=== PATIENT | female | born 1965 | race Caucasian/White ===

== ENCOUNTER → 2016-11-22 | Outpatient (CLI) | payer OTHER ==
[~2016-11-22] MED LIST: MISCCAP80 PO; MULT-190 PO; MULT-506 PO; VENL75CA73 PO
== END | disposition home or self-care (01) ==
LOC: C.PAPS 14:35
PROVIDERS: ATTEND Obstetrics & Gynecology
DX: Z12.4 Encounter for screening for malignant neoplasm of cervix (principal)

== ENCOUNTER → 2016-12-05 | Outpatient (CLI) | payer OTHER ==
[2016-12-05 14:40] LABS: HEMATOCRIT 36.8 % (37-47); MEAN CELL VOLUME 95.6 fL (80-100); MEAN CORPUSCULAR HEMOGLOBIN 32.2 pg (25-34); MEAN CORPUSCULAR HGB CONC 33.7 g/dl (32-36); MEAN PLATELET VOLUME 10.3 fL (7.4-10.4); PLATELET COUNT 282 K/uL (130-400); RED BLOOD COUNT 3.85 M/uL (4.2-5.4); WHITE BLOOD COUNT 8.16 K/uL (4.8-10.8)
== END | disposition home or self-care (01) ==
LOC: C.LAB1850 13:55
PROVIDERS: ATTEND Obstetrics & Gynecology
DX: N93.9 Abnormal uterine and vaginal bleeding, unspecified (principal)

== ENCOUNTER → 2016-12-25 | Outpatient (CLI) | payer OTHER | END | disposition home or self-care (01) | LOC: C.PATHSPEC 17:35 | PROVIDERS: ATTEND Obstetrics & Gynecology | DX: N93.9 Abnormal uterine and vaginal bleeding, unspecified (principal); N85.00 Endometrial hyperplasia, unspecified ==

== ENCOUNTER → 2017-02-20 | Day surgery (SDC) | payer OTHER ==
[2017-01-15 08:10] VITALS: Ht 167.6 cm; Wt 59.1 kg
[~2017-02-20] VITALS: Ht 167.6 cm; Wt 59.1 kg
[~2017-02-20] MED LIST changes: +DEXAMETHASONE SOD INJ 4 MG/ML VIAL ONE; +FENTANYL CITRATE INJ 50 MCG/1 ML 2 ML VIAL IV PRN; +FENTANYL CITRATE INJ 50 MCG/1 ML 2 ML VIAL ONE; +IBUPROFEN 600 MG TAB PO PRN; +KETOROLAC TROMETHAMINE 30 MG/ML VIAL IV. PRN; +LACTATED RINGER'S 1000ML 1,000 ML IV PRN; +LACTATED RINGER'S 1000ML 1,000 ML IV SCH; +LIDOCAINE HCL 2% 2 ML VIAL (20MG/ML) ONE; +MIDAZOLAM HCL 1 MG/ML 2ML VIAL ONE; +ONDANSETRON INJ 2 MG/ML 2 ML VIAL IV PRN; +ONDANSETRON INJ 2 MG/ML 2 ML VIAL ONE; +PROPOFOL IV EMULSION 10 MG/ML 20 ML VIAL IV ONE; +SODIUM CHLORIDE 0.9% 1000ML 1,000 ML IV SCH
--- NOTE | 2017-02-20 13:00 | History & Physical Bridge - [place] ---
H&P Re-Evaluation Bridge Note: I have examined the patient, reviewed the History & Physical and in the interval since the performance of the History & Physical I have noted the following changes of clinical significance: No changes noted
--- NOTE | 2017-02-20 13:35 | Discharge Instructions ---
Discharge Instructions Date of Service Feb 20, 2017. Admission Reason for Admission: Abnormal Uterine Bleeding, Endometrial Polyp Discharge Discharge Diagnosis / Problem: after surgery Discharge Goals Goal(s): Routine recovery after surgery Activity Recommendations Activity Limitations: as noted below . Instructions / Follow-Up Instructions / Follow-Up ACTIVITY RECOMMENDATIONS: * Avoid tampons, douching, hot tubs, pools, and intercourse until bleeding has stopped. * May shower as usual. * No strenuous activity for 24-48 hours. After 24-48 hours, you may do anything you feel like doing (driving and sports are okay). SPECIAL CARE INSTRUCTIONS: Special Diet: * Mild nausea may occur in the immediate post-operative period. * Take clear liquids such as tea, cola or bouillon until all nausea has subsided; you may then resume your normal diet. Special Care: * Light bleeding and vaginal spotting can last from a few days to 3-4 weeks. Call your doctor if bleeding becomes heavier than the heaviest part of your period. * Check your temperature twice a day for one week. If it goes above 100.4 degrees Fahrenheit (38.0 Celsius), notify your doctor. * Call your doctor's office for an appointment for 2-4 weeks after your surgery. FOLLOW-UP VISIT: Call your doctor's office for an appointment for 2-4 weeks after your surgery. Current Hospital Diet Patient's current hospital diet: Discharge Diet Recommended Diet: Regular Diet Procedures Procedures Performed: Dilatation And Curettage, Hysteroscopy, Polypectomy Pending Studies Studies pending at discharge: yes List of pending studies: pathology report Medical Emergencies . Who to Call and When: Medical Emergencies: If at any time you feel your situation is an emergency, please call 911 immediately. . Non-Emergent Contact Non-Emergency issues call your: [employer] . . "Provider Documentation" section prepared by Vita Barr. . VTE Core Measure Inpt VTE Proph given/why not?: Treatment not indicated
--- NOTE | 2017-02-20 13:37 | [facility] Post Operative Brief Note ---
Immediate Operative Summary Operative Date Feb 20, 2017. Pre-Operative Diagnosis Abnormal uterine bleeding, endometrial polyp Post-Operative Diagnosis Same as preop Procedure(s) Performed Dilatation And Curettage, Hysteroscopy, Polypectomy Surgeon Dr. Vita Barr Assistant Scientist Surgeon(s) None Estimated Blood Loss 0 mL Findings uterus sounds to 7cm. polyp emanating from right cornual area. large curettings. saline deficit <100cc. Fluids (cc crystalloids) 500 Specimens A: Endometrial curettings and polyp Drains none Anesthesia general Complication(s) None Disposition Recovery Room / PACU
--- NOTE | 2017-02-20 13:56 | OPERATIVE REPORT ---
DATE OF OPERATION: 02/20/2017 PREOPERATIVE DIAGNOSES: 1. Abnormal uterine bleeding. 2. Suspicion for endometrial polyp. POSTOPERATIVE DIAGNOSES: 1. Abnormal uterine bleeding. 2. Endometrial polyp PROCEDURE: 1. Dilatation and curettage. 2. Hysteroscopy with endometrial polypectomy. SURGEON: Dr. Vita Barr. RENDERING EQUIPMENT TENDER: None. ANESTHESIA: General. IV FLUIDS: 500 mL. ESTIMATED BLOOD LOSS: 0 mL. INDICATIONS: A 51-year-old with continued abnormal uterine bleeding with suspicion for endometrial polyp on ultrasound last year and again this year. At this point, she desires surgical evaluation and management. FINDINGS: Normal uterus, cavity of the uterus sounded to 7 cm. Saline hysteroscopic fluid deficit less than 100 mL. Cavity normal appearing with normal left tubal ostia well seen, right tubal ostia obscured by presence of the polyp. At the end of the procedure hysteroscopic findings included no remaining polyps. OPERATION AND FINDINGS: PROCEDURE: The patient was taken to the operating room and identified. After adequate general anesthesia was obtained, she was placed in dorsal lithotomy position and prepped and draped in the usual sterile fashion. The bladder was drained for clear yellow urine. A weighted speculum and anterior retractor were used to visualize the cervix which was grasped its anterior lip with an Allis clamp. The cervix was sequentially dilated using Hegar dilators to 27. The diagnostic hysteroscope primed with saline medium was gently placed through the cervical os into the uterine cavity with the findings as noted above. The polyp forceps as well as the serrate curette were used to clear the uterus of its contents and the uterus was curettaged to a gritty consistency. All specimens were sent. The camera was used to confirm removal of the visualized polyp. At this point the procedure was terminated. The instruments were removed from the vagina. The patient was returned to supine position. She was awoken from anesthesia and transferred to the recovery room in stable condition. All sponge, lap and needle counts were correct x2. I attest to the content of the Intraoperative Record and any orders documented therein. Any exceptions are noted below. MTDD
--- NOTE | 2017-02-20 14:02 | Anesthesia Progress Nt - [facility] ---
Anesthesia Post Op Note Date & Time Feb 20, 2017 at 14:01 Vital Signs Pain Intensity: 0 Vital Signs Past 12 Hours Date Time Temp Pulse Resp B/P Pulse Ox O2 Delivery O2 Flow Rate FiO2 02/20/17 13:32 36.2 55 16 136/75 100 Diffusion Mask 6 02/20/17 12:33 36.4 58 16 133/84 100 Room Air Notes Mental Status: alert / awake / arousable, participated in evaluation Pt Amnestic to Procedure: Yes Nausea / Vomiting: adequately controlled Pain: adequately controlled Airway Patency, RR, SpO2: stable & adequate BP & HR: stable & adequate Hydration State: stable & adequate Anesthetic Complications: no major complications apparent Pt doing well.
[2017-02-20 14:55] VITALS: BP 147/87; PULSE 64; O2SAT 99
== END | disposition home or self-care (01) ==
LOC: X.SURG 12:19
PROVIDERS: ATTEND Obstetrics & Gynecology
DX: N93.9 Abnormal uterine and vaginal bleeding, unspecified (principal); N84.0 Polyp of corpus uteri; F32.9 Major depressive disorder, single episode, unspecified; Z88.1 Allergy status to other antibiotic agents; Z98.890 Other specified postprocedural states; Z68.21 Body mass index [BMI] 21.0-21.9, adult; F17.200 Nicotine dependence, unspecified, uncomplicated; Z81.8 Family history of other mental and behavioral disorders; Z82.49 Family history of ischemic heart disease and other diseases of the circulatory system; Z80.3 Family history of malignant neoplasm of breast

== ENCOUNTER 2017-04-26 01:51 | Inpatient (IN) | payer OTHER ==
[~2017-04-26] VITALS: Ht 167.6 cm; Wt 59.0 kg
[2017-04-26] VITALS (8 sets, daily range): BP systolic 122–156; BP diastolic 74–89; PULSE 70–85; TEMP 36.5–37; O2SAT 93–97; Ht 167.6 cm; Wt 59.0 kg
[~2017-04-26 01:51] MED LIST changes: -DEXAMETHASONE SOD INJ 4 MG/ML VIAL ONE; -FENTANYL CITRATE INJ 50 MCG/1 ML 2 ML VIAL IV PRN; -FENTANYL CITRATE INJ 50 MCG/1 ML 2 ML VIAL ONE; -IBUPROFEN 600 MG TAB PO PRN; -KETOROLAC TROMETHAMINE 30 MG/ML VIAL IV. PRN; -LACTATED RINGER'S 1000ML 1,000 ML IV PRN; -LACTATED RINGER'S 1000ML 1,000 ML IV SCH; -LIDOCAINE HCL 2% 2 ML VIAL (20MG/ML) ONE; -MIDAZOLAM HCL 1 MG/ML 2ML VIAL ONE; -MULT-506 PO; -ONDANSETRON INJ 2 MG/ML 2 ML VIAL IV PRN; -ONDANSETRON INJ 2 MG/ML 2 ML VIAL ONE; -PROPOFOL IV EMULSION 10 MG/ML 20 ML VIAL IV ONE; -SODIUM CHLORIDE 0.9% 1000ML 1,000 ML IV SCH
[2017-04-26] MEDS ORDERED: ONDANSETRON INJ 2 MG/ML 2 ML VIAL IV STA (02:14)
[2017-04-26] MEDS ORDERED: SODIUM CHLORIDE 0.9% 1000ML 1,000 ML IV STA (02:14)
[2017-04-26] MEDS ORDERED: FENTANYL CITRATE INJ 50 MCG/1 ML 2 ML VIAL IV STA (02:14)
[2017-04-26] MEDS ORDERED: MULT-506 PO (02:17)
--- NOTE | 2017-04-26 02:21 | EMERGENCY ROOM VISIT NOTE ---
History Report prepared by Jil: Gloria Gibson Under the Supervision of: Dr. Steph Avalos D.O. First contact with patient: 01:57 Chief Complaint: ABDOMINAL PAIN Stated Complaint: ABDOMINAL PAIN,VOMITING History of Present Illness The patient is a 51 year old female who presents to the Emergency Room with complaints of sudden, persistent abdominal pain that began one hour prior to arrival. She currently rates her discomfort as an 8/10 in severity. The patient states that she was out this evening at a bar and had two beers. She additionally notes that she had two glasses of wine around 2300. The patient states that at 0100 she was woken with severe abdominal pain and vomiting. She additionally associates diaphoresis with her symptoms. The patient reports a history of palpitations and chronic constipation. She states that two weeks ago she had surgery for a uterine fibroid and uterine polyp. The patient denies any history of hypertension. She denies any chest pain today. The patient reports that her mother had a history of an aortic aneurysm. Source of History: patient Onset: one hour prior to arrival Position: abdomen Symptom Intensity: 8/10 Timing: other (sudden, persistent) Associated Symptoms: + vomiting, No chest pain Review of Systems See HPI for pertinent positives & negatives. A total of 10 systems reviewed and were otherwise negative. Past Medical & Surgical Medical Problems: (1) Chronic constipation (2) Palpitations (3) Uterine fibroid (4) Uterine polyp Family History Aortic aneurysm MOTHER No pertinent family history stated. Social History Smoking Status: Current Every Day Smoker Marital Status: Housing Status: lives with significant other Occupation Status: unemployed Current/Historical Medications Scheduled Multivitamin (Multivitamin), 1 TAB PO DAILY Ocuvite Preservision (Ocuvite Preservision), 1 TAB PO QAM Probiotic Product (Probiotic), 1 TAB PO QAM Venlafaxine Hcl (Venlafaxine Extended Rel), 75 MG PO QAM Allergies Coded Allergies: Diphenhydramine (Verified Allergy, Unknown, "skin crawling", 02/20/17) Hydromorphone (Verified Allergy, Unknown, nausea/vomiting, 02/20/17) Physical Exam Vital Signs Date Time Temp Pulse Resp B/P (MAP) Pulse Ox O2 Delivery O2 Flow Rate FiO2 04/26/17 04:21 165/93 04/26/17 04:15 68 24 94 04/26/17 04:11 156/87 04/26/17 04:01 161/89 04/26/17 03:52 163/77 04/26/17 03:45 63 15 100 04/26/17 03:41 167/89 04/26/17 03:31 171/100 04/26/17 03:21 182/98 04/26/17 03:15 65 21 100 04/26/17 03:11 183/90 04/26/17 03:01 196/100 04/26/17 02:51 166/100 04/26/17 02:45 76 20 100 04/26/17 02:41 80 16 154/101 100 Room Air 04/26/17 02:28 77 04/26/17 01:53 76 24 105/66 99 Room Air Physical Exam HEENT: Head - normocephalic and atraumatic Pupils are equal, round, and reactive to light. Extraocular eye muscles are intact, and sclera are anicteric. Nose - moist nasal mucosa without discharge. Mouth - moist buccal mucosa. Oropharynx is nonerythematous and there is no tonsillar exudate or edema noted. Neck: Supple; no JVD, nuchal rigidity, cervical lymphadenopathy. Heart: Tachycardic rate and regular rhythm. There is a normal S1 and S2 with no murmurs, clicks, or gallops appreciated. Lungs: Clear to auscultation bilaterally with no wheezes, rales, or rhonchi. Abdomen: Diffusely tender. Soft, nondistended, with hyperactive bowel sounds. There are no palpable pulsatile masses or hepatosplenomegaly. There is no guarding, rigidity, or rebound noted. Extremities: No evidence of cyanosis, clubbing, or edema. There are easily palpable peripheral pulses. Skin: Diaphoretic. warm with good turgor and no rashes. Medical Decision & Procedures ER Provider Diagnostic Interpretation: CT results as stated below per my review and radiologist interpretation: CT CHEST: No evidence of thoracic aortic aneurysm or dissection. The lungs are clear. No pleural effusion or pneumothorax. The heart and pericardium unremarkable. Bilateral breast augmentation. No acute osseous abnormality. CTA ABDOMEN AND PELVIS: Impression: Cecum is in abnormally positioned within the left upper quadrant with marked gaseous distension and twisting of its anterior and prximal portion suggesting cecal volvulus. There is mild edema noted within the mesentery. No pneumatosis or free air. Additional findings: The liver, gallbladder, spleen, pancreas, and adrenal glands are unremarkable. The kidneys, ureters and urinary bladder are unremarkable. The uterus is unremarkable. Several cysts with left ovary. The appendix is not competently visualized. No acute osseous abnormality. Radiologist: Andrzej Bhakta MD Laboratory Results 04/26/17 02:00 Red Blood Count 4.17, Mean Corpuscular Volume 92.8, Mean Corpuscular Hemoglobin 31.7, Mean Corpuscular Hemoglobin Concent 34.1, Mean Platelet Volume 9.5, Neutrophils (%) (Auto) 33.6, Lymphocytes (%) (Auto) 54.8, Monocytes (%) (Auto) 7.1, Eosinophils (%) (Auto) 3.9, Basophils (%) (Auto) 0.3, Neutrophils # (Auto) 3.12, Lymphocytes # (Auto) 5.09, Monocytes # (Auto) 0.66, Eosinophils # (Auto) 0.36, Basophils # (Auto) 0.03 04/26/17 02:00 Test 04/26/17 02:00 04/26/17 02:24 04/26/17 03:05 White Blood Count 9.29 K/uL (4.8-10.8) Red Blood Count 4.17 M/uL (4.2-5.4) Hemoglobin 13.2 g/dL (12.0-16.0) Hematocrit 38.7 % (37-47) Mean Corpuscular Volume 92.8 fL (80-100) Mean Corpuscular Hemoglobin 31.7 pg (25-34) Mean Corpuscular Hemoglobin Concent 34.1 g/dl (32-36) Platelet Count 350 K/uL (130-400) Mean Platelet Volume 9.5 fL (7.4-10.4) Neutrophils (%) (Auto) 33.6 % Lymphocytes (%) (Auto) 54.8 % Monocytes (%) (Auto) 7.1 % Eosinophils (%) (Auto) 3.9 % Basophils (%) (Auto) 0.3 % Neutrophils # (Auto) 3.12 K/uL (1.4-6.5) Lymphocytes # (Auto) 5.09 K/uL (1.2-3.4) Monocytes # (Auto) 0.66 K/uL (0.11-0.59) Eosinophils # (Auto) 0.36 K/uL (0-0.5) Basophils # (Auto) 0.03 K/uL (0-0.2) RDW Standard Deviation 42.4 fL (36.4-46.3) RDW Coefficient of Variation 12.4 % (11.5-14.5) Immature Granulocyte % (Auto) 0.3 % Immature Granulocyte # (Auto) 0.03 K/uL (0.00-0.02) Red Blood Cell Morphology Unremarkable Anion Gap 15.0 mmol/L (3-11) Est Creatinine Clear Calc Drug Dose 63.2 ml/min Estimated GFR () 77.8 Estimated GFR (Non- 67.2 BUN/Creatinine Ratio 16.1 (10-20) Calcium Level 10.1 mg/dl (8.5-10.1) Total Bilirubin 0.2 mg/dl (0.2-1) Direct Bilirubin < 0.1 mg/dl (0-0.2) Aspartate Amino Transf (AST/SGOT) 18 U/L (15-37) Alanine Aminotransferase (ALT/SGPT) 23 U/L (12-78) Alkaline Phosphatase 76 U/L (45-117) Total Creatine Kinase 138 U/L (26-192) Creatine Kinase MB 1.1 ng/ml (0.5-3.6) Creatine Kinase MB Ratio 0.8 (0-3.0) Troponin I < 0.015 ng/ml (0-0.045) Total Protein 7.9 gm/dl (6.4-8.2) Albumin 4.2 gm/dl (3.4-5.0) Lipase 221 U/L (73-393) Bedside Lactic Acid Venous 4.77 mmol/L (0.90-1.70) Urine Color YELLOW Urine Appearance CLOUDY (CLEAR) Urine pH 7.5 (4.5-7.5) Urine Specific [place] 1.026 (1.000-1.030) Urine Protein NEG (NEG) Urine Glucose (UA) 1+ (NEG) Urine Ketones TRACE (NEG) Urine Occult Blood NEG (NEG) Urine Nitrite NEG (NEG) Urine Bilirubin NEG (NEG) Urine Urobilinogen NEG (NEG) Urine Leukocyte Esterase SMALL (NEG) Urine WBC (Auto) 1-5 /hpf (0-5) Urine RBC (Auto) 0-4 /hpf (0-4) Urine Hyaline Casts (Auto) 1-5 /lpf (0-5) Urine Epithelial Cells (Auto) >30 /lpf (0-5) Urine Bacteria (Auto) 1+ (NEG) Urine Yeast (Auto) PRESENT (NONE PRSENT) Laboratory results per my review. Medications Administered Medications (Trade) Dose Ordered Sig/Charles Route Start Time Stop Time Status Last Admin Dose Admin Sodium Chloride 1,000 ml @ 999 mls/hr Q1H1M STAT IV 04/26/17 02:14 04/26/17 03:14 DC 04/26/17 02:21 999 MLS/HR Ondansetron HCl (Zofran Inj) 4 mg NOW STAT IV 04/26/17 02:14 04/26/17 02:17 DC 04/26/17 02:21 4 MG Fentanyl Citrate (Fentanyl Inj) 50 mcg NOW STAT IV 04/26/17 02:14 04/26/17 02:17 DC 04/26/17 02:22 50 MCG Fentanyl Citrate (Fentanyl Inj) 50 mcg NOW ONCE IV 04/26/17 03:00 04/26/17 03:01 DC 04/26/17 02:54 50 MCG Morphine Sulfate (MoRPHine SULFATE INJ) 2 mg STK-MED ONCE .ROUTE 04/26/17 03:26 04/26/17 03:27 DC 04/26/17 03:29 2 MG Lactated Ringer's 1,000 ml @ 150 mls/hr Q6H40M IV 04/26/17 04:00 05/26/17 03:59 04/26/17 04:20 150 MLS/HR Cefoxitin Sodium (Mefoxin IV) 1,000 mg STK-MED ONCE .ROUTE 04/26/17 04:29 04/26/17 04:30 DC 04/26/17 04:13 2,000 MG Morphine Sulfate (MoRPHine SULFATE INJ) 2 mg Q1HWA PRN IV 04/26/17 04:30 05/10/17 04:29 04/26/17 04:22 2 MG Procedure Medications Administered: Fentanyl Inj 50 mcg IV, Zofran Inj 4 mg IV, Sodium Chloride 1000 ml @ 999 mls/ hr IV, Fentanyl Inj 50 mcg IV, Morphine Sulfate 2 mg IV. ECG Indication: abdominal pain Rate (beats per minute): 82 Rhythm: normal sinus Findings: ST depression (inferiorly and laterally), other (significant artifact ) ED Course 0212: Past medical records reviewed. The patient was evaluated in room B10. A complete history and physical exam was performed. 2 large bore IV locks were initiated. 0214: Ordered Fentanyl Inj 50 mcg IV, Zofran Inj 4 mg IV, Sodium Chloride 1000 ml @ 999 mls/hr IV. The patient went for a stat CT scan of the chest, abdomen/ pelvis. 0300: She continued to complain of severe pain in the abdomen. She was hemodynamically stable. Ordered Fentanyl Inj 50 mcg IV. 0301: I discussed the patients case with the [facility] radiologist. He believes that the patient has cecal volvulus. He suggests that general surgery is consulted. 0308: I discussed the patients case with Dr. Neil, General Surgery. He states that he will be here to see the patient shortly. 0309: I reevaluated the patient and she is resting. I discussed the exam findings with her and I discussed the treatment plan. She verbalized complete understanding and agreement. She will be evaluated for further treatment. 0323: Ordered Morphine Sulfate 2 mg IV. 0332: I reevaluated the patient and she is feeling better after the morphine. She is hemodynamically stable. 0339: I reevaluated the patient and she is more comfortable. 0343: Dr. Neil, General Surgery arrived in the emergency department to evaluate the patient further. Medical Decision The patient is a 51 year old female who presents to the ED with abdominal pain. Differential diagnosis includes aortic dissection, AAA, pancreatitis, perforated viscus, kidney stone, small bowel obstruction, mesenteric ischemia. I attest that I have personally reviewed the patient's current medication list. Blood Pressure Screening: Patient was found to have a slightly elevated blood pressure due to circumstances. I do not believe that the patient requires hypertension monitoring. Lab interpretation: no leukocytosis, stable H&H, lactic acid 4.7, normal renal function, glucose 149, normal LFTs, negative troponin, normal lipase, urinalysis trace ketones 1+ bacteria, small leukocyte esterase. The patient presents to the emergency department with a sudden onset of severe mid abdominal pain. Vital signs are stable. CT scan revealed evidence of a cecal volvulus with mesenteric edema. The patient had a lactic acid of 4.7 which was quite concerning for ischemia. I discussed the case with general surgery and they will evaluate the patient to go to the OR. Consults Time Called: [phone] Consulting Physician: Dr. Neil, General Surgery Returned Call: 030 I discussed the patients case with Dr. Neil, General Surgery. He states that he will be here to see the patient shortly. Impression Primary Impression: Cecal volvulus Critical Care I have personally spent greater than 60 minutes of critical care time in the direct management of this patient. This includes bedside care, interpretation of diagnostic studies, and testing, discussion with consultants, patient, and family members, and other required patient management activities. This 60 minutes is in excess of all separately billable procedures. Scribe Attestation The scribe's documentation has been prepared under my direction and personally reviewed by me in its entirety. I confirm that the note above accurately reflects all work, treatment, procedures, and medical decision making performed by me. Departure Information Dispostion Being Evaluated By Surgeon Kimo Zhang M.D. (PCP)
[2017-04-26 02:23] LABS: HEMATOCRIT 38.7 % (37-47); MEAN CELL VOLUME 92.8 fL (80-100); MEAN CORPUSCULAR HEMOGLOBIN 31.7 pg (25-34); MEAN CORPUSCULAR HGB CONC 34.1 g/dl (32-36); MEAN PLATELET VOLUME 9.5 fL (7.4-10.4); PLATELET COUNT 350 K/uL (130-400); RED BLOOD COUNT 4.17 M/uL (4.2-5.4); WHITE BLOOD COUNT 9.29 K/uL (4.8-10.8)
[2017-04-26] MEDS ORDERED: OPTIRAY 320 IV PRN (02:30)
[2017-04-26 02:43] LABS: BASO % 0.3 %; BASO ABS # 0.03 K/uL (0-0.2); COMPLETE YES; EOS % 3.9 %; IG% 0.3 %; LYMPH % 54.8 %; LYMPH ABS # 5.09 K/uL (1.2-3.4); MONO % 7.1 %; NEUT % 33.6 %
[2017-04-26 02:47] LABS: ALT/SGPT 23 U/L (12-78); AST/SGOT 18 U/L (15-37); BLOOD UREA NITROGEN 16 mg/dl (7-18); BUN/CREATININE RATIO 16.1 (10-20); CARBON DIOXIDE 18 mmol/L (21-32); CHLORIDE 109 mmol/L (98-107); CREATININE 0.97 mg/dl (0.60-1.20); GLUCOSE 149 mg/dl (70-99); POTASSIUM 3.3 mmol/L (3.5-5.1); SODIUM 142 mmol/L (136-145)
[2017-04-26 02:52] LABS: ALKALINE PHOSPHATASE 76 U/L (45-117); CKMB/CK RATIO 0.8 (0-3.0)
[2017-04-26] MEDS ORDERED: FENTANYL CITRATE INJ 50 MCG/1 ML 2 ML VIAL IV ONE (03:00)
[2017-04-26 03:21] LABS: URINE APPEARANCE CLOUDY (CLEAR); URINE BILIRUBIN NEG (NEG); URINE COLOR YELLOW; URINE EPITHELIAL CELL AUTO >30 /lpf (0-5); URINE NITRITE NEG (NEG); URINE PH 7.5 (4.5-7.5); URINE SPECIFIC GRAVITY 1.026 (1.000-1.030); UROBILINOGEN NEG (NEG)
[2017-04-26 03:21] LABS: CALCIUM 10.1 mg/dl (8.5-10.1)
[2017-04-26] MEDS ORDERED: MoRPHine SULFATE 4 MG/ML 1 ML CARP\\VIAL IV STA (03:23)
[2017-04-26 03:24] LABS: MANUAL MICROSCOPIC REQUIRED? NO; REVIEW REQ? YES
[2017-04-26] MEDS ORDERED: MoRPHine SULFATE 2 MG/ML CARP ONE ×3 (03:26→05:59)
[2017-04-26] MEDS ORDERED: CEFOXITIN 2000MG/60 ML D5W IV STA (03:58)
[2017-04-26] MEDS ORDERED: LACTATED RINGER'S 1000ML 1,000 ML IV SCH (04:00)
--- NOTE | 2017-04-26 04:11 | History and Physical ---
History & Physical Date Apr 26, 2017. Chief Complaint acute onset abd pain, ct scan cecal volvulus History of Present Illness The patient is a 51 year old female with complaints of acute abd pain started at 1;00 am(had few drinks prior to that earlier) had bm on way to hospital and vomited here in ER but pain persists had colonoscopy past for constipation no family history of colonic problems previous surgery uterine polyps social drinker Past Medical/Surgical History Medical Problems: (1) Chronic constipation (2) Palpitations (3) Uterine fibroid (4) Uterine polyp Additional History Hepatic Disease: No Endocrine Disorder: No Kidney Disease: No Hypertension: No Heart Disease: Yes Bleeding Tendencies: No Infectious Diseases: No Allergies Coded Allergies: Diphenhydramine (Verified Allergy, Unknown, "skin crawling", 02/20/17) Hydromorphone (Verified Allergy, Unknown, nausea/vomiting, 02/20/17) Home Medications Scheduled Multivitamin (Multivitamin), 1 TAB PO DAILY Ocuvite Preservision (Ocuvite Preservision), 1 TAB PO QAM Probiotic Product (Probiotic), 1 TAB PO QAM Venlafaxine Hcl (Venlafaxine Extended Rel), 75 MG PO QAM Physical Examination Skin: + pertinent finding (feels cold bit clammy with occ diaphoresis) ENT: normal ENT inspection, pharynx normal Head: normocephalic, atraumatic Neck: supple, no adenopathy, trachea midline Respiratory/Chest: lungs clear, normal breath sounds, no respiratory distress Cardiovascular: regular rate, rhythm, no edema, no murmur Abdomen / GI: + pertinent finding (generalized guarding no loc tenderness) Back: normal inspection Extremities: normal inspection, normal range of motion Neurologic/Psych: oriented x 3 Addiitonal Comments: acute onset regarding timing from ETOH use a few hours Diagnosis cecal volvulus Plan of Treatment to OR for colon resection r and c explained to pt and
[2017-04-26] MEDS: MoRPHine SULFATE 2 MG/ML CARP IV PRN ×4 (04:22→21:00)
[2017-04-26] MEDS ORDERED: CEFOXITIN SOD 1 GM VIAL ONE (04:29)
[2017-04-26] MEDS ORDERED: ONDANSETRON INJ 2 MG/ML 2 ML VIAL IV PRN (04:45)
[2017-04-26] MEDS ORDERED: FENTANYL CITRATE INJ 50 MCG/1 ML 2 ML VIAL IV PRN (04:45)
[2017-04-26] MEDS ORDERED: ATROPINE SULFATE 0.1 MG/ML 5ML SYR IV PRN (04:45)
[2017-04-26] MEDS ORDERED: EpHEDrine SULFATE INJ 50 MG/ML AMP IV PRN (04:45)
[2017-04-26] MEDS ORDERED: ROCURONIUM BROMIDE 10 MG/ML 5 ML VIAL ONE (04:53)
[2017-04-26] MEDS ORDERED: ONDANSETRON INJ 2 MG/ML 2 ML VIAL ONE (04:53)
[2017-04-26] MEDS ORDERED: FENTANYL CITRATE INJ 50 MCG/1 ML 2 ML VIAL ONE (04:53)
[2017-04-26] MEDS ORDERED: PROPOFOL IV EMULSION 10 MG/ML 20 ML VIAL IV ONE (04:53)
[2017-04-26] MEDS ORDERED: LIDOCAINE HCL 2% 2 ML VIAL (20MG/ML) ONE (04:53)
[2017-04-26] MEDS ORDERED: SUCCINYLCHOLINE CHLORIDE 20 MG/ML 10 ML VIAL IV ONE (04:53)
[2017-04-26] MEDS ORDERED: EpHEDrine SULFATE 50MG/5ML SYR ONE (06:11)
[2017-04-26] MEDS ORDERED: GLYCOPYRROLATE INJ 0.2 MG/ML VIAL ONE (06:19)
[2017-04-26] MEDS ORDERED: NEOSTIGMINE METHYLSULFATE 5 MG/5 ML SYR ONE (06:19)
--- NOTE | 2017-04-26 06:39 | [facility] Operative Report ---
Operative Report Operative Date Apr 26, 2017. Pre-Operative Diagnosis cecal volvulus Post-Operative Diagnosis same Procedure(s) Performed resection right colon and hepatic flexure with primary side to side primary anastomosis(sewn) small bowel run no congenital bands Surgeon Dr. Neil Internal Communications Manager Surgeon(s) 0 Estimated Blood Loss 30cc Findings cecal volvulus edematous but viable Specimens right colon and hepatic flexureSpecimen: A. Micro: 1. urine culture Drains 1/4 inch sub surya Indications cecal volvulus Description of Procedure open right and hepatic flexure resection with side to side sewn anastomosis (2 layer chromic and silk) small bowel run no congenital bands I attest to the content of the Intraoperative Record and any orders documented therein. Any exceptions are noted below.
--- NOTE | 2017-04-26 06:47 | Anesthesiology Progress Note ---
Anesthesia Post Op Note Date & Time Apr 26, 2017 at 06:47 Vital Signs Vital Signs Past 12 Hours Date Time Temp Pulse Resp B/P (MAP) Pulse Ox O2 Delivery O2 Flow Rate FiO2 04/26/17 04:39 36.5 04/26/17 04:21 165/93 04/26/17 04:15 68 24 94 04/26/17 04:11 156/87 04/26/17 04:01 161/89 04/26/17 03:52 163/77 04/26/17 03:45 63 15 100 04/26/17 03:41 167/89 04/26/17 03:31 171/100 04/26/17 03:21 182/98 04/26/17 03:15 65 21 100 04/26/17 03:11 183/90 04/26/17 03:01 196/100 04/26/17 02:51 166/100 04/26/17 02:45 76 20 100 04/26/17 02:41 80 16 154/101 100 Room Air 04/26/17 02:28 77 04/26/17 01:53 76 24 105/66 99 Room Air Notes Mental Status: alert / awake / arousable, participated in evaluation Pt Amnestic to Procedure: Yes Nausea / Vomiting: adequately controlled Pain: adequately controlled Airway Patency, RR, SpO2: stable & adequate BP & HR: stable & adequate Hydration State: stable & adequate Anesthetic Complications: no major complications apparent
[2017-04-26] MEDS: MoRPHine SULFATE 10 MG/ML CARP/VIAL IV PRN ×4 (07:05→07:45)
--- NOTE | 2017-04-26 07:30 | DIAGNOSTIC IMAGING REPORT ---
CT angiogram chest, abdomen and pelvis ANGIO CHEST, ABD/PELVIS COMBO CLINICAL HISTORY: DISSECTION STUDY TECHNIQUE: Pre and postcontrast transaxial acquisition. Multi axial reformatted images. COMPARISON STUDY: None FINDINGS: Lungs are considered clear. There are no focal infiltrates. The thoracic aorta is normal in course and caliber. There is no evidence for aneurysm or dissection. Bilateral breast augmentation procedures have been performed. Abdominal aorta is negative for aneurysm or dissection. Iliac vasculature appears to be unremarkable. No evidence for gastric distention. Mild cecal distention at 10 cm. Sequences located in the left upper quadrant. This potentially relates to cecal volvulus versus a mobile cecum. The vascular pedicle appears to be intact. Kidneys and 8 uniformly. There is no significant abdominal or pelvic adenopathy. Appears to be bilateral ovarian cysts. An increased amount of stool content within the rectosigmoid. IMPRESSION: 1. Mildly distended cecum positioned in the left upper quadrant. 2. Diagnostic considerations include cecal volvulus versus a mobile cecum. 3. Negative study of the arterial structures of the chest abdomen and pelvis. 4. No evidence for bowel wall thickening or pneumatosis. 5. 2.5 cm left ovarian cyst. 6. Mild increase in fecal load within the rectosigmoid 7. No definite evidence for vascular compromise of the mesentery. Electronically signed by: Jamshid Lopez M.D. 04/26/2017 7:29 AM Dictated Date/Time: 04/26/2017 7:21 AM
[2017-04-26] MEDS: SODIUM CHLOR 0.45% + 20MEQ KCL 1,000 ML IV SCH ×2 (09:47→16:50)
[2017-04-26] MEDS: MoRPHine SULFATE 4 MG/ML 1 ML CARP\\VIAL IV PRN ×2 (10:42→13:34)
[2017-04-26 10:58] LABS: PARTIAL THROMBOPLASTIN RATIO 0.9; PROTHROMBIN TIME (PATIENT) 10.5 SECONDS (9.0-12.0)
[2017-04-26] MEDS: CEFOXITIN IV 2,000 MG in DEXTROSE 5% 50ML 50 ML IV SCH ×3 (11:14→23:24)
[2017-04-26] MEDS: HEPARIN SOD 5000 UNIT/0.5 ML CARP SQ SCH ×2 (14:25→23:28)
[2017-04-27] MEDS: MoRPHine SULFATE 4 MG/ML 1 ML CARP\\VIAL IV PRN ×3 (00:11→11:59)
[2017-04-27] MEDS: SODIUM CHLOR 0.45% + 20MEQ KCL 1,000 ML IV SCH ×3 (00:28→16:59)
[2017-04-27 03:29] VITALS: BP 134/76; PULSE 67; TEMP 36.7; O2SAT 95
[2017-04-27] MEDS: CEFOXITIN IV 2,000 MG in DEXTROSE 5% 50ML 50 ML IV SCH ×2 (03:41→09:30)
[2017-04-27] MEDS: HEPARIN SOD 5000 UNIT/0.5 ML CARP SQ SCH ×3 (05:55→21:38)
[2017-04-27 06:35] LABS: BASO % 0.2 %; BASO ABS # 0.02 K/uL (0-0.2); COMPLETE YES; EOS % 0.5 %; HEMATOCRIT 33.1 % (37-47); IG% 0.2 %; LYMPH % 15.7 %; LYMPH ABS # 1.48 K/uL (1.2-3.4); MEAN CELL VOLUME 96.8 fL (80-100); MEAN CORPUSCULAR HEMOGLOBIN 31.9 pg (25-34); MEAN CORPUSCULAR HGB CONC 32.9 g/dl (32-36); MEAN PLATELET VOLUME 9.5 fL (7.4-10.4); MONO % 6.8 %; NEUT % 76.6 %; PLATELET COUNT 250 K/uL (130-400); RED BLOOD COUNT 3.42 M/uL (4.2-5.4); WHITE BLOOD COUNT 9.45 K/uL (4.8-10.8)
[2017-04-27 07:10] VITALS: BP 134/81; PULSE 57; TEMP 36.9; O2SAT 98
[2017-04-27] MEDS ORDERED: NURSING VERBAL MED ORDER ONE (07:15)
[2017-04-27] MEDS: ACETAMINOPHEN IV 650 MG / 65ML IV PRN ×3 (07:25→20:37)
[2017-04-27] MEDS: VENLAFAXINE HCL XR 75 MG CAPXR PO SCH (07:28)
[2017-04-27 07:57] LABS: CALCIUM 8.5 mg/dl (8.5-10.1); CREATININE 0.95 mg/dl (0.60-1.20); POTASSIUM 4.4 mmol/L (3.5-5.1)
--- NOTE | 2017-04-27 09:27 | Surgery Progress Note ---
Surgery Progress Note Date of Service Apr 27, 2017. Subjective Post OP Day: 1 + nausea (mildearlier), No bowel movement, No flatus, No vomiting Objective Vital Signs: Date Time Temp Pulse Resp B/P (MAP) Pulse Ox O2 Delivery O2 Flow Rate FiO2 04/27/17 03:29 36.7 67 16 134/76 (95) 95 Room Air 04/27/17 00:20 Room Air 04/26/17 23:01 37.0 70 16 133/79 (97) 96 Room Air 04/26/17 19:00 36.6 70 16 126/78 (94) 97 Room Air 04/26/17 16:10 36.8 70 18 122/74 (90) 97 Room Air 04/26/17 16:10 Room Air 04/26/17 11:33 36.8 72 19 136/81 (99) 93 Room Air 04/26/17 10:30 36.5 85 16 138/85 (102) 96 Room Air 04/26/17 09:30 36.8 77 16 151/86 (107) 96 Room Air Physical Exam: ROYAL drainage, nasogastric drainage (100 cc yesterday after surgery, 70 cc last shift) Abdomen: non distended, + abnormal bowel sounds (presetn) Incision(s): clean, dry, intact Laboratory Results: Results Past 24 Hours Test 04/26/17 10:30 04/27/17 06:19 Range/Units Prothrombin Time 10.5 9.0-12.0 SECONDS Prothromb Time International Ratio 1.0 0.9-1.1 Activated Partial Thromboplast Time 23.3 21.0-31.0 SECONDS Partial Thromboplastin Ratio 0.9 White Blood Count 9.45 4.8-10.8 K/uL Red Blood Count 3.42 4.2-5.4 M/uL Hemoglobin 10.9 12.0-16.0 g/dL Hematocrit 33.1 37-47 % Mean Corpuscular Volume 96.8 80-100 fL Mean Corpuscular Hemoglobin 31.9 25-34 pg Mean Corpuscular Hemoglobin Concent 32.9 32-36 g/dl Platelet Count 250 130-400 K/uL Mean Platelet Volume 9.5 7.4-10.4 fL Neutrophils (%) (Auto) 76.6 % Lymphocytes (%) (Auto) 15.7 % Monocytes (%) (Auto) 6.8 % Eosinophils (%) (Auto) 0.5 % Basophils (%) (Auto) 0.2 % Neutrophils # (Auto) 7.24 1.4-6.5 K/uL Lymphocytes # (Auto) 1.48 1.2-3.4 K/uL Monocytes # (Auto) 0.64 0.11-0.59 K/uL Eosinophils # (Auto) 0.05 0-0.5 K/uL Basophils # (Auto) 0.02 0-0.2 K/uL RDW Standard Deviation 46.3 36.4-46.3 fL RDW Coefficient of Variation 13.0 11.5-14.5 % Immature Granulocyte % (Auto) 0.2 % Immature Granulocyte # (Auto) 0.02 0.00-0.02 K/uL Sodium Level 135 136-145 mmol/L Potassium Level 4.4 3.5-5.1 mmol/L Chloride Level 105 98-107 mmol/L Carbon Dioxide Level 22 21-32 mmol/L Anion Gap 8.0 3-11 mmol/L Blood Urea Nitrogen 6 7-18 mg/dl Creatinine 0.95 0.60-1.20 mg/dl Est Creatinine Clear Calc Drug Dose 64.5 ml/min Estimated GFR () 79.8 Estimated GFR (Non- 68.9 BUN/Creatinine Ratio 6.0 10-20 Random Glucose 101 70-99 mg/dl Lactic Acid Level 0.8 0.4-2.0 mmol/L Calcium Level 8.5 8.5-10.1 mg/dl Assessment & Plan S/P right colectomy for cecal volvulus Stable Has peristalsis D/C NT but would maintain clear liquids for now D/C Lee OOB, ambulate
[2017-04-27 11:08] VITALS: BP 139/78; PULSE 63; O2SAT 100
[2017-04-27] MEDS: ONDANSETRON INJ 2 MG/ML 2 ML VIAL IV PRN ×2 (12:06→21:39)
[2017-04-27 15:19] VITALS: BP 134/83; PULSE 62; TEMP 37; O2SAT 97
[2017-04-27] MEDS: MoRPHine SULFATE 2 MG/ML CARP IV PRN (21:39)
[2017-04-27 23:11] VITALS: BP 146/83; PULSE 76; TEMP 36.8; O2SAT 96
[2017-04-28] MEDS: SODIUM CHLOR 0.45% + 20MEQ KCL 1,000 ML IV SCH ×3 (00:18→18:47)
[2017-04-28] MEDS: MoRPHine SULFATE 2 MG/ML CARP IV PRN ×2 (03:03→21:45)
[2017-04-28] MEDS: ACETAMINOPHEN IV 650 MG / 65ML IV PRN ×2 (05:55→16:07)
[2017-04-28] MEDS: HEPARIN SOD 5000 UNIT/0.5 ML CARP SQ SCH ×3 (05:56→21:40)
[2017-04-28 07:10] VITALS: BP 134/84; PULSE 61; TEMP 36.9; O2SAT 97
[2017-04-28] MEDS: VENLAFAXINE HCL XR 75 MG CAPXR PO SCH (09:07)
--- NOTE | 2017-04-28 10:14 | Surgery Progress Note ---
Surgery Progress Note Date of Service Apr 28, 2017. Subjective Post OP Day: 1 + flatus (small amount), No nausea, No vomiting Objective Vital Signs: Date Time Temp Pulse Resp B/P (MAP) Pulse Ox O2 Delivery O2 Flow Rate FiO2 04/28/17 07:10 36.9 61 17 134/84 (101) 97 Room Air 04/28/17 00:20 Room Air 04/27/17 23:11 36.8 76 16 146/83 (104) 96 Room Air 04/27/17 15:30 Room Air 04/27/17 15:19 37.0 62 16 134/83 (100) 97 Room Air 04/27/17 11:08 63 16 139/78 (98) 100 Room Air Abdomen: non tender, non distended, + abnormal bowel sounds (diminished) Assessment & Plan S/P right colectomy for cecal volvulus Stable Has peristalsis Tolerated NGT out Begin clear liquids
[2017-04-28 15:54] VITALS: BP 134/75; PULSE 61; TEMP 36.8; O2SAT 98
[2017-04-28 16:30] VITALS: O2SAT 98
[2017-04-29] MEDS: SODIUM CHLOR 0.45% + 20MEQ KCL 1,000 ML IV SCH ×2 (01:31→10:59)
[2017-04-29 01:33] VITALS: BP 142/85; PULSE 72; TEMP 36.8; O2SAT 97
[2017-04-29] MEDS: ACETAMINOPHEN IV 650 MG / 65ML IV PRN (02:01)
[2017-04-29] MEDS: HEPARIN SOD 5000 UNIT/0.5 ML CARP SQ SCH ×3 (05:35→21:58)
[2017-04-29 05:56] LABS: MEAN CELL VOLUME 97.1 fL (80-100); MEAN CORPUSCULAR HGB CONC 32.9 g/dl (32-36); MEAN PLATELET VOLUME 9.8 fL (7.4-10.4); PLATELET COUNT 278 K/uL (130-400); WHITE BLOOD COUNT 7.01 K/uL (4.8-10.8)
[2017-04-29 06:55] VITALS: BP 132/78; PULSE 61; TEMP 36.8; O2SAT 97
--- NOTE | 2017-04-29 07:43 | Surgery Progress Note ---
Surgery Progress Note Date of Service Apr 29, 2017. Subjective Post OP Day: 3 + feeling well Objective Vital Signs: Date Time Temp Pulse Resp B/P (MAP) Pulse Ox O2 Delivery O2 Flow Rate FiO2 04/29/17 06:55 36.8 61 18 132/78 (96) 97 Room Air 04/29/17 01:33 36.8 72 16 142/85 (104) 97 Room Air 04/28/17 23:45 Room Air 04/28/17 16:30 98 Room Air 04/28/17 15:54 36.8 61 16 134/75 (94) 98 Room Air 04/28/17 07:45 Room Air General Appearance: no apparent distress Abdomen: soft Incision(s): clean (sub cut drain remved) Laboratory Results: Results Past 24 Hours Test 04/29/17 05:08 Range/Units White Blood Count 7.01 4.8-10.8 K/uL Red Blood Count 3.50 4.2-5.4 M/uL Hemoglobin 11.2 12.0-16.0 g/dL Hematocrit 34.0 37-47 % Mean Corpuscular Volume 97.1 80-100 fL Mean Corpuscular Hemoglobin 32.0 25-34 pg Mean Corpuscular Hemoglobin Concent 32.9 32-36 g/dl RDW Standard Deviation 45.0 36.4-46.3 fL RDW Coefficient of Variation 12.6 11.5-14.5 % Platelet Count 278 130-400 K/uL Mean Platelet Volume 9.8 7.4-10.4 fL Assessment & Plan passing flatus, wants move to eat abd neg incision fine will advance to full liquid, dec IV d/c analgesics , may shower, likely d/c next 24 hrs
[2017-04-29] MEDS ORDERED: OXYCODONE/ACETAMINOPHEN 5-325 TAB PO PRN (07:45)
[2017-04-29] MEDS: VENLAFAXINE HCL XR 75 MG CAPXR PO SCH (09:56)
[2017-04-29 14:59] VITALS: BP 116/79; PULSE 67; TEMP 36.9; O2SAT 97
[2017-04-29 23:05] VITALS: BP 122/81; PULSE 71; TEMP 36.4; O2SAT 99
[2017-04-30] MEDS: HEPARIN SOD 5000 UNIT/0.5 ML CARP SQ SCH (05:42)
--- NOTE | 2017-04-30 06:05 | Surgery Progress Note ---
Surgery Progress Note Date of Service Apr 30, 2017. Subjective Post OP Day: 4 + feeling well, + flatus Objective Vital Signs: Date Time Temp Pulse Resp B/P (MAP) Pulse Ox O2 Delivery O2 Flow Rate FiO2 04/29/17 23:30 Room Air 04/29/17 23:05 36.4 71 16 122/81 (95) 99 Room Air 04/29/17 16:00 Room Air 04/29/17 14:59 36.9 67 18 116/79 (91) 97 Room Air 04/29/17 09:00 Room Air 04/29/17 06:55 36.8 61 18 132/78 (96) 97 Room Air General Appearance: no apparent distress Abdomen: soft Incision(s): clean Assessment & Plan passing flatus, wants move to eat abd neg incision fine will advance to full liquid, dec IV d/c analgesics , may shower, likely d/c next 24 hrs passing flatus, wants move to eat abd neg incision fine will advance to full liquid, dec IV d/c analgesics , may shower, likely d/c next 24 hrs
--- NOTE | 2017-04-30 06:07 | Surgery Progress Note ---
Surgery Progress Note Date of Service Apr 30, 2017. Objective Vital Signs: Date Time Temp Pulse Resp B/P (MAP) Pulse Ox O2 Delivery O2 Flow Rate FiO2 04/29/17 23:30 Room Air 04/29/17 23:05 36.4 71 16 122/81 (95) 99 Room Air 04/29/17 16:00 Room Air 04/29/17 14:59 36.9 67 18 116/79 (91) 97 Room Air 04/29/17 09:00 Room Air 04/29/17 06:55 36.8 61 18 132/78 (96) 97 Room Air Assessment & Plan passing flatus, wants move to eat abd neg incision fine will advance to full liquid, dec IV d/c analgesics , may shower, likely d/c next 24 hrs regular diet (wants more to eat passing flatus no complaints wants to go home) passing flatus, wants move to eat abd neg incision fine will advance to full liquid, dec IV d/c analgesics , may shower, likely d/c next 24 hrs
--- NOTE | 2017-04-30 06:13 | Discharge Instructions ---
Discharge Instructions Date of Service Apr 30, 2017. Admission Reason for Admission: Cecal Volulus Discharge Discharge Diagnosis / Problem: cecal volvulus Discharge Goals Goal(s): Decrease discomfort Activity Recommendations Activity Limitations: per Instructions/Follow-up section (no lifting greater than 10 lbs for one week) Driving or Machine Use: no driving until seen in office saturday . Current Hospital Diet Patient's current hospital diet: Regular Diet Discharge Diet Recommended Diet: Regular Diet Procedures Procedures Performed: Exploratory laparotomy with colon resection Pending Studies Studies pending at discharge: no Medical Emergencies . Who to Call and When: Medical Emergencies: If at any time you feel your situation is an emergency, please call 911 immediately. . Non-Emergent Contact Non-Emergency issues call your: Primary Care Provider Call Non-Emergent contact if: temperature is above 101.5, your pain is worsening, wound has increased drainage, wound has increased redness, wound has increased pain call office [phone] for any problems and f/u office saturday [phone] [facility] general surgery Dr Neil . "Provider Documentation" section prepared by Yifan Neil. . VTE Core Measure Inpt VTE Proph given/why not?: Unfractionated heparin SQ
[2017-04-30 07:06] VITALS: BP 122/84; PULSE 67; TEMP 36.7; O2SAT 98
[2017-04-30] MEDS: VENLAFAXINE HCL XR 75 MG CAPXR PO SCH (09:18)
[2017-04-30 10:18] VITALS: BP 122/84; PULSE 67; TEMP 36.7; O2SAT 98
[2017-04-30] MEDS ORDERED: MoRPHine SULFATE 10 MG/ML CARP/VIAL IV ONE (14:44)
--- NOTE | 2017-05-01 09:03 | Discharge Summary ---
Discharge Summary Date of Service May 01, 2017. Admission Date/Reason Apr 26, 2017 at 08:43 Cecal Volulus. Discharge Date/Disposition Apr 30, 2017 Home Diagnosis Principal Diagnosis: Cecal Volvulus Secondary Diagnoses/Problems: 1. Chronic Constipation 2. Palpitations 3. Uterine Fibroid 4. Uterine Polyp Procedure(s) Performed Resection of right colon and hepatic flexure with primary side to side primary anastomosis (sewn) small bowel run no congenital bands with Dr. Neil Medication Reconciliation 1. Multivitamin 1 tab PO daily 2. Ocuvite Preservision 1 tab PO QAM 3. Probiotic 1 tab PO QAM 4. Venlafaxine Hcl 75mg PO QAM Admission Physical Exam As per Admitting History & Physical. Hospital Course Ms. Martinez is a 52-year-old female with past medical history significant for heart palpitations and chronic constipation presented to [facility] ED in the director food safety of 04/26/17 for evaluation of acute abdominal pain that started approximately 1 hour prior to arrival. This pain awoke her from her sleep. She also admitted to nausea and vomiting. Patient was clammy with occasional diaphoresis. She reported that earlier in the evening she was at a bar where she had a couple of beers and some wine. She had a bowel movement on the way to the hospital, but the pain continued to persist. Patient stated that she approximately 2 weeks she had surgery for a uterine fibroid and uterine polyp. Patient denied family history of colon issues. Patient denied chest pain in ED. Imaging- CT angiogram chest, abdomen and pelvis ANGIO CHEST, ABD/PELVIS COMBO IMPRESSION: 1. Mildly distended cecum positioned in the left upper quadrant. 2. Diagnostic considerations include cecal volvulus versus a mobile cecum. 3. Negative study of the arterial structures of the chest abdomen and pelvis. 4. No evidence for bowel wall thickening or pneumatosis. 5. 2.5 cm left ovarian cyst. Diagnosis- Cecal Volvulus. Patient was immediately prepped for colon resection in OR. Pre-Op Dx- Cecal Volvulus Post-Op Dx- Same Procedure- Resection of right colon and hepatic flexure with primary side to side primary anastomosis (sewn) small bowel run no congenital bands. NG tube was placed. Navarro catheter. Drain- 1/4 inch sub Fang. Post-operatively patient was admitted under General Surgery service. POD#1 patient had mild nausea in AM, was kept on clear liquids. D/C navarro catheter, D/ C NG tube POD#2 Patient continued to improved. Remained on clear liquids. POD #3 Patient continued to improve. Started to feel hungry- advanced diet to full liquids. Started to pass flatus. D/C Analgesics. Fang drain removed. POD # 4 Patient advanced to regular diet, passing flatus- felt ready to be discharged to home. Patient was discharged to home. Pathology- Cecal volvulus GROSS DESCRIPTION RIGHT COLON TO HEPATIC FLEXURE The specimen is received in a container labeled as right colon hepatic flexure with patient name Felisa Martinez The specimen consists of a right hemicolectomy which includes portion of terminal ileum, cecum with attached appendix, ascending and presumed portion of transverse colon all with attached fatty tissue. The portion of large intestine is markedly dilated, measuring 21 cm in length and ranging from 4 to 8.5 cm in diameter. The serosal surface is pale and edematous. Contents are semifluid fecal material. The mucosal surface is pale, pink and edematous with an attenuation of much of the rugal pattern. Focal mucosal erosion/tearing is noted within the cecum. The wall is focally thin and attenuated, ranging from 0.1 to 0.3 cm in thickness. The appendix measures 7.5 cm in length and ranges from 0.6 to 0.8 cm in diameter. No obvious abnormality is noted. The terminal ileum measures 5 cm in length and averages 2.5 cm in diameter. The serosal surface is pale and edematous. The mucosal surface is edematous though normally rugated. Dope Weigh Operator sections are submitted in three cassettes with 1 representing large intestine; 2 , appendix and 3, terminal ileum. FINAL DIAGNOSIS- COLON, RIGHT TO HEPATIC FLEXURE AND TERMINAL ILEUM, RESECTION: EDEMA, CONGESTION AND SEROSITIS CONSISTENT WITH THE HISTORY OF VOLVULUS. Discharge Instructions- 1. Patient to limit lifting to no more than 10lbs until follow-up appointment. 2. Patient to not drive until follow-up appointment. 3. Recommended diet- regular diet. 4. Patient to follow-up in the General Surgery office 05/03/2017. Discharge Instructions Please refer to the electronic Patient Visit Report (Discharge Instructions) for additional information.
--- NOTE | 2017-05-20 08:55 | OPERATIVE REPORT ---
DATE OF OPERATION: 04/26/2017 PREOPERATIVE DIAGNOSIS: Cecal volvulus. POSTOPERATIVE DIAGNOSIS: Same. PROCEDURE: Resection of right colon to the hepatic flexure with primary [id number] anastomosis, small bowel was round, there was no congenital band. SURGEON: Yifan Neil MD DESCRIPTION OF PROCEDURE: The patient was brought into the operating room theater. The abdomen was prepped with Betadine solution and properly draped. Lee catheter had been inserted. We made an incision in the periumbilical area approximately 4 inches long, deepened through subcutaneous tissue. We entered the abdomen where we were met at the dilated cecum that was up towards the left upper quadrant. It appeared very chronically thickened and there was no evidence of any ischemia of the wall. At this point, we exteriorized it by first dividing the white line of Toldt all the way circumferentially around the liver and the cecum, the ascending colon, the hepatic flexure all the way down to the transverse colon which we brought out over through wound. At this point, we were able then to divide the terminal ileum with a KAREN stapler and then took the mesentery down to the right of the middle colic dividing the hepatic flexure right at the transverse colon, middle colic with another stapler. The 2 staple lines were oversewn with 3-0 silk interrupted sutures. Prior to that, we ran the small bowel. There was no evidence of any congenital malformation. The duodenal retroperitoneal was all normal, the small bowel was found, there was no other bands. We closed the mesentery first with interrupted 3-0 silk aligning the 2 sides of the terminal ileum and the hepatic flexure completing an anastomosis in 2 layer fascia, 3-0 silk outer layer, and 3-0 chromic inner layer. The anastomosis was checked for patency and appeared satisfactory. The viscera was then returned to normal anatomic position. We irrigated the abdomen and NG tube was positioned. The abdomen was closed with interrupted #1 PDS. We placed a quarter inch subcutaneous drain attaching the either end with 3-0 silk suture. Dressing was applied. The procedure was tolerated well by the patient. Estimated blood loss was approximately 30 mL. The patient was taken to recovery room in good condition. I attest to the content of the Intraoperative Record and any orders documented therein. Any exception s are noted below.
== END 2017-04-30 14:45 | disposition home or self-care (01) | DRG 331 ==
LOC: C.EDB 01:52 → ENRESERV 07:33 → C.MSW 08:43
PROVIDERS: ADMIT Surgery; ATTEND Surgery
PROC: 0D1B0ZL Bypass Ileum to Transverse Colon, Open Approach (ICD-10-PCS; principal; 2017-04-26 04:35)
DX: K56.2 Volvulus (principal); F17.200 Nicotine dependence, unspecified, uncomplicated; Z79.899 Other long term (current) drug therapy